=== PATIENT | female | born 1975 | race Caucasian/White ===

== ENCOUNTER 2017-12-26 17:42 | Emergency (ER) | payer SELFPAY ==
[~2017-12-26] VITALS: Ht 162.6 cm; Wt 140.5 kg
[~2017-12-26 17:42] MED LIST: ASPI81TA82 PO
[2017-12-26 17:45] VITALS: BP 149/85; PULSE 109; RESP 18; TEMP 97.8; O2SAT 97
--- NOTE | 2017-12-26 18:10 | PD ---
HPI Chief Complaint: Cardiac Complaint Time Seen by Provider: 17:57 Travel History International Travel<30 days: No Contact w/Intl Traveler<30days: No Traveled to known affect area: No History of Present Illness HPI 42-year-old female with history of A. fib, status post ablation [address] Levin presents to the emergency department for evaluation palpitations happening daily over the last 2 weeks. She states she came in today because he were more persistent and she felt lightheaded. She reports some mild shortness of breath when they do occur. Currently she is having no pain and no shortness of breath. She has no palpitations. She has no nausea vomiting. No recent illnesses, fever, chills. She has no other symptoms to report. [facility] Past Medical History Anemia: Yes (R/T LONG MENSTRUAL CYCLE) Asthma: Yes Atrial Fibrillation: Yes (A-FLUTTER) Heart Rhythm Problems: Yes Cardiovascular Problems: Yes (AFIB/AFLUTTER WITH ABLATION) High Cholesterol: No Chest Pain: No Congestive Heart Failure: No Diminished Hearing: No Gastrointestinal Disorders: No Genitourinary: Yes Hypertension: Yes Kidney Stones: Yes Musculoskeletal: No Neurologic: No Reproductive: No Respiratory: Yes ?: Not LMP: DEC 2017 : 0 Para: 0 Miscarriage: 0 : 0 Past Surgical History Cardiac Surgery: Yes (A-FIB ABLATION) Other Surgery: No Social History Alcohol Use: No Tobacco Use: Yes Substance Use: No Allergies-Medications (Allergen,Severity, Reaction): Coded Allergies: No Known Allergies (Unverified , 05/05/16) Reported Meds & Prescriptions Reported Meds & Active Scripts Active Reported Aspir-81 (Aspirin) 81 Mg Tabdr Review of Systems Except as stated in HPI: all other systems reviewed are Neg Physical Exam Narrative GENERAL: Obese female patient, sitting up in bed, in no acute distress. SKIN: Focused skin assessment warm/dry. HEAD: Atraumatic. Normocephalic. EYES: Pupils equal and round. No scleral icterus. No injection or drainage. ENT: No nasal bleeding or discharge. Mucous membranes pink and moist. NECK: Trachea midline. No JVD. CARDIOVASCULAR: Tachycardic rate and rhythm. No murmur appreciated. RESPIRATORY: No accessory muscle use. Diminished, likely due to girth. Breath sounds equal bilaterally. GASTROINTESTINAL: Abdomen soft, non-tender, nondistended. Hepatic and splenic margins not palpable. MUSCULOSKELETAL: No obvious deformities. No clubbing. No cyanosis. No edema. NEUROLOGICAL: Awake and alert. No obvious cranial nerve deficits. Motor grossly within normal limits. Normal speech. PSYCHIATRIC: Appropriate mood and affect; insight and judgment normal. Data Data Last Documented VS Vital Signs Date Time Temp Pulse Resp B/P (MAP) Pulse Ox O2 Delivery O2 Flow Rate FiO2 12/26/17 19:36 12/26/17 19:36 76 16 100 Room Air 12/26/17 17:45 97.8 Orders Orders Electrocardiogram (12/26/17 ) Basic Metabolic Panel (Bmp) (12/26/17 18:25) Ckmb (Isoenzyme) Profile (12/26/17 18:25) Complete Blood Count With Diff (12/26/17 18:25) Magnesium (Mg) (12/26/17 18:25) Prothrombin Time / Inr (Pt) (12/26/17 18:25) Act Partial Throm Time (Ptt) (12/26/17 18:25) Troponin I (12/26/17 18:25) Lipase (12/26/17 18:25) Chest, Single Ap (12/26/17 18:25) Ecg Monitoring (12/26/17 18:25) Bilateral Bp Monitoring (12/26/17 18:25) Iv Access Insert/Monitor (12/26/17 18:25) Oximetry (12/26/17 18:25) Oxygen Administration (12/26/17 18:25) Sodium Chloride 0.9% Flush (Ns Flush) (12/26/17 18:30) Ed Discharge Order (12/26/17 19:23) Labs Laboratory Tests Test 12/26/17 18:30 White Blood Count 13.1 TH/MM3 Red Blood Count 5.00 MIL/MM3 Hemoglobin 13.3 GM/DL Hematocrit 39.6 % Mean Corpuscular Volume 79.1 FL Mean Corpuscular Hemoglobin 26.6 PG Mean Corpuscular Hemoglobin Concent 33.6 % Red Cell Distribution Width 15.8 % Platelet Count 301 TH/MM3 Mean Platelet Volume 8.0 FL Neutrophils (%) (Auto) 63.4 % Lymphocytes (%) (Auto) 27.3 % Monocytes (%) (Auto) 5.6 % Eosinophils (%) (Auto) 2.6 % Basophils (%) (Auto) 1.1 % Neutrophils # (Auto) 8.3 TH/MM3 Lymphocytes # (Auto) 3.6 TH/MM3 Monocytes # (Auto) 0.7 TH/MM3 Eosinophils # (Auto) 0.3 TH/MM3 Basophils # (Auto) 0.1 TH/MM3 CBC Comment DIFF FINAL Differential Comment Prothrombin Time 9.9 SEC Prothromb Time International Ratio 1.0 RATIO Activated Partial Thromboplast Time 26.7 SEC Blood Urea Nitrogen 23 MG/DL Creatinine 1.26 MG/DL Random Glucose 103 MG/DL Calcium Level 9.3 MG/DL Magnesium Level 1.8 MG/DL Sodium Level 140 MEQ/L Potassium Level 4.3 MEQ/L Chloride Level 108 MEQ/L Carbon Dioxide Level 26.4 MEQ/L Anion Gap 6 MEQ/L Estimat Glomerular Filtration Rate 46 ML/MIN Total Creatine Kinase 65 U/L Troponin I LESS THAN 0.02 NG/ML Lipase 125 U/L MDM Medical Decision Making Medical Screen Exam Complete: Yes Emergency Medical Condition: Yes Medical Record Reviewed: Yes Differential Diagnosis arrhythmia versus he electrolyte abnormality versus A. fib versus flutter versus anxiety Narrative Course 42-year-old female presents to emergency department for evaluation palpitations. Patient appears without distress. Vital signs are stable. Currently she is having no symptoms. EKG is complete and reviewed per my attending physician. She is also assess the patient. She recommends basic lab work with 1 set cardiac enzymes. These are all reviewed and without acute concern. Patient is discharged to follow-up with her survey questionnaire designer. She agrees to return immediately with any acute worsening symptoms. Diagnosis Primary Impression: Palpitations Referrals: Sprinkler Driver Primary Care Physician Patient Instructions: General Instructions, Heart Palpitations (ED) Additional Instructions: Follow-up with your primary Care provider Follow-up with her survey questionnaire designer Return immediately to the emergency department with any acute worsening of symptoms Med/Other Pt SpecificInfo: No Change to Meds Disposition: 01 DISCHARGE HOME Condition: Stable PengMara charles JENIFFER Dec 26, 2017 18:10
[2017-12-26] MEDS ORDERED: SODIUM CHLORIDE 0.9% FLUSH 10 ML FLUSH IVF PRN (18:30)
[2017-12-26 18:42] LABS: AUTOMATED NEUTROPHIL # 8.3 TH/MM3 (1.8-7.7); BASOPHIL # 0.1 TH/MM3 (0-0.2); BASOPHIL % 1.1 % (0.0-2.0); EOSINOPHIL # 0.3 TH/MM3 (0-0.4); EOSINOPHIL % 2.6 % (0.0-4.0); HEMATOCRIT 39.6 % (35.0-46.0); HEMOGLOBIN 13.3 GM/DL (11.6-15.3); LYMPH % 27.3 % (9.0-44.0); LYMPHOCYTE # 3.6 TH/MM3 (1.0-4.8); MEAN CELL VOLUME 79.1 FL (80.0-100.0); MEAN CORPUSCULAR HEMOGLOBIN 26.6 PG (27.0-34.0); MEAN CORPUSCULAR HGB CONC 33.6 % (32.0-36.0); MONO % 5.6 % (0.0-8.0); MONOCYTE # 0.7 TH/MM3 (0-0.9); NEUT % 63.4 % (16.0-70.0); PLATELET COUNT 301 TH/MM3 (150-450); RED CELL DISTRIBUTION WIDTH 15.8 % (11.6-17.2); WHITE BLOOD COUNT 13.1 TH/MM3 (4.0-11.0)
--- NOTE | 2017-12-26 18:49 | PD ---
Physical Exam Narrative I, Dr. De Souza, have reviewed the advance practice practitioner's documentation and am in agreement, met with the patient face to face, made the diagnosis, and the medical decision making was done by me. *My assessment and Findings: Anxiety vs. atypical ACS 42yo morbidly obese female with history of afib s/p ablation here with c/o palpitations for 2 weeks. Said it usually lasts half an hour but persisted longer today. Denies any chest pain or sob but when she feels the palpation, she feels a little sob. Denies any fever, n/v, abdominal pain, focal weakness or numbness. Pt is currently in sinus rhythm with PACs. Will check electrolytes and a CXR. My PA will follow and if negative, pt can follow up as outpatient. Data Data Last Documented VS Vital Signs Date Time Temp Pulse Resp B/P (MAP) Pulse Ox O2 Delivery O2 Flow Rate FiO2 12/26/17 19:36 12/26/17 19:36 76 16 100 Room Air 12/26/17 17:45 97.8 Orders Orders Electrocardiogram (12/26/17 ) Basic Metabolic Panel (Bmp) (12/26/17 18:25) Ckmb (Isoenzyme) Profile (12/26/17 18:25) Complete Blood Count With Diff (12/26/17 18:25) Magnesium (Mg) (12/26/17 18:25) Prothrombin Time / Inr (Pt) (12/26/17 18:25) Act Partial Throm Time (Ptt) (12/26/17 18:25) Troponin I (12/26/17 18:25) Lipase (12/26/17 18:25) Chest, Single Ap (12/26/17 18:25) Ecg Monitoring (12/26/17 18:25) Bilateral Bp Monitoring (12/26/17 18:25) Iv Access Insert/Monitor (12/26/17 18:25) Oximetry (12/26/17 18:25) Oxygen Administration (12/26/17 18:25) Sodium Chloride 0.9% Flush (Ns Flush) (12/26/17 18:30) Ed Discharge Order (12/26/17 19:23) Labs Laboratory Tests Test 12/26/17 18:30 White Blood Count 13.1 TH/MM3 Red Blood Count 5.00 MIL/MM3 Hemoglobin 13.3 GM/DL Hematocrit 39.6 % Mean Corpuscular Volume 79.1 FL Mean Corpuscular Hemoglobin 26.6 PG Mean Corpuscular Hemoglobin Concent 33.6 % Red Cell Distribution Width 15.8 % Platelet Count 301 TH/MM3 Mean Platelet Volume 8.0 FL Neutrophils (%) (Auto) 63.4 % Lymphocytes (%) (Auto) 27.3 % Monocytes (%) (Auto) 5.6 % Eosinophils (%) (Auto) 2.6 % Basophils (%) (Auto) 1.1 % Neutrophils # (Auto) 8.3 TH/MM3 Lymphocytes # (Auto) 3.6 TH/MM3 Monocytes # (Auto) 0.7 TH/MM3 Eosinophils # (Auto) 0.3 TH/MM3 Basophils # (Auto) 0.1 TH/MM3 CBC Comment DIFF FINAL Differential Comment Prothrombin Time 9.9 SEC Prothromb Time International Ratio 1.0 RATIO Activated Partial Thromboplast Time 26.7 SEC Blood Urea Nitrogen 23 MG/DL Creatinine 1.26 MG/DL Random Glucose 103 MG/DL Calcium Level 9.3 MG/DL Magnesium Level 1.8 MG/DL Sodium Level 140 MEQ/L Potassium Level 4.3 MEQ/L Chloride Level 108 MEQ/L Carbon Dioxide Level 26.4 MEQ/L Anion Gap 6 MEQ/L Estimat Glomerular Filtration Rate 46 ML/MIN Total Creatine Kinase 65 U/L Troponin I LESS THAN 0.02 NG/ML Lipase 125 U/L [facility] Supervised Visit with THIAGO: Yes Interpretation(s) EKG: NSR 94bpm. PACs. No ST segment elevation or depression. Diagnosis Primary Impression: Palpitations Patient Instructions: General Instructions Departure Forms: Tests/Procedures Chika De Souza DO Dec 26, 2017 18:49
--- NOTE | 2017-12-26 18:53 | RADRPT ---
EXAM DATE/TIME: 12/26/2017 18:32 [place] COMPARISON: CHEST SINGLE AP, May 05, 2016, 13:13. INDICATIONS : Shortness of breath. MEDICAL HISTORY : None. SURGICAL HISTORY : None. ENCOUNTER: Initial ACUITY: 1 day PAIN SCORE: 0/10 LOCATION: Bilateral chest FINDINGS: A single view of the chest demonstrates the lungs to be symmetrically aerated without evidence of mas s, infiltrate or effusion. The cardiomediastinal contours are unremarkable. Osseous structures are intact. CONCLUSION: No acute disease. Newton Lopez MD on December 26, 2017 at 18:52 Board Certified Radiologist. This report was verified electronically.
[2017-12-26] MEDS ORDERED: ASPI81TA81 (18:54)
[2017-12-26 18:59] LABS: PROTHROMBIN TIME - PATIENT 9.9 SEC (9.8-11.6)
[2017-12-26 19:01] LABS: BICARBONATE 26.4 MEQ/L (21.0-32.0); BLOOD UREA NITROGEN 23 MG/DL (7-18); CALCIUM 9.3 MG/DL (8.5-10.1); CHLORIDE 108 MEQ/L (98-107); CREATININE 1.26 MG/DL (0.50-1.00); GLOMERULAR FILTRATION RATE 46 ML/MIN (>89); GLUCOSE,RANDOM 103 MG/DL (74-106); MAGNESIUM 1.8 MG/DL (1.5-2.5); SODIUM (NA) 140 MEQ/L (136-145)
[2017-12-26 19:05] LABS: TROPONIN I LESS THAN 0.02 NG/ML (0.02-0.05)
[2017-12-26 19:36] VITALS: BP 148/76; PULSE 76; RESP 16; O2SAT 100
--- NOTE | 2017-12-27 12:18 | EKG ---
Date Performed: 12/26/2017 Time Performed: 18:23:46 PTAGE: 42 years EKG: Sinus rhythm WITH FREQUENT SUPRAVENTRICULAR PREMATURE COMPLEXES ABNORMAL RHYTHM ECG PREVIOUS TRACING : 05/05/2016 12.31 Since the prior tracing, there has been no significant beltran DOCTOR: Leonel Burton Interpretating Date/Time 12/27/2017 12:17:29
== END 2017-12-26 19:38 | disposition home or self-care (01) ==
LOC: NEPE 17:42
DX: R00.2 Palpitations (principal); R94.31 Abnormal electrocardiogram [ECG] [EKG]; J45.909 Unspecified asthma, uncomplicated; I48.91 Unspecified atrial fibrillation; I48.92 Unspecified atrial flutter; I10 Essential (primary) hypertension; Z72.0 Tobacco use
CPT/HCPCS: 71045; 80048; 82550; 83690; 83735; 84484; 85025; 85610; 85730; 93005